=== PATIENT | male | born 1965 | race Caucasian/White ===

== ENCOUNTER → 2020-01-18 15:02 | Outpatient (CLI) | payer MEDICAID, SELFPAY ==
[2020-01-18 16:27] LABS: Coronavirus 19 IgG Antibody Negative (Negative); Coronavirus 19 IgM Antibody Negative (Negative)
== END ==
PROVIDERS: PCP Nurse Practitioner Family; Visit Provider Internal Medicine Gastroenterology
DX: Z03.818 Encounter for observation for suspected exposure to other biological agents ruled out (principal)
CPT/HCPCS: 36415; 86328

== ENCOUNTER 2020-01-20 11:27 | Day surgery (SDC) | payer MEDICAID, SELFPAY ==
[2020-01-20 12:00] VITALS: BP 188/90; PULSE 75; RESP 18; TEMP 36.8; O2SAT 98; BMI 26.0
[2020-01-20 12:11] LABS: POC Glucose,Bedside 202 (70-110)
[2020-01-20 12:52] VITALS: O2SAT 97
--- NOTE | 2020-01-20 12:59 | HMH.ANESCL ---
[facility] Anesthesia Checklist - Patient Identification Patient Identification: Arm Band, Verbal (Name & ) - Structural Data Admitted From: Home Planned Operative Procedure/s: Colonoscopy Consent for Planned Operative Procedure(s) Verified: Yes Verified Documents: Surgical Consent, History and Physical - NPO Status Verified Time NPO: 00:00 - Chart Verification Results Verified: None - Additional verifications Fingerstick Blood Glucose: 202 Anesthesia Reactions: No - Airway Assessment C-Spine Mobility Assessed: Yes TMJ Mobility Assessed: Yes Dentition: Edentulous - Neurological Assessment Level of Consciousness: Awake, Alert, Appropriate, Follows Commands Hx Seizures: No Numbness or tingling in extremities: No - Anesthesia Plan Anesthesia Risk discussed: Yes Anesthesia Plan: Verified ASA Class: III Anesthesia Type: MAC [facility] History I have reviewed the patient's past medical history: Yes Medical History: Reports:: Chronic Obstructive Pulmonary Disease (COPD), Diabetes Mellitus Type 2, Hyperlipidemia, Hypertension Denies:: Cancer, Diabetes Mellitus Type 1, Internal Pacemaker, MRSA, Seizures *Have you ever received a pneumonia vaccine?: No *Have you received a flu vaccine this season?: No Anesthesia experience/problems:: No prior complications Other Surgeries: Yes: Cholecystectomy. No: Pacemaker Amputation: No Fractures: Yes (Right tibia/fibula) - *Social History Last grade of school completed: High school graduate Smoking Status: Current every day smoker Tobacco Type: cigarettes # Packs/Day (cigarettes): 2 Alcohol Intake: never Substance Use Type: opiates *Occupational Status:: disabled Household Members: spouse *Travel in the last 8 weeks: None Family Hx:: Cancer, Diabetes, Hypertension
[2020-01-20 13:17] VITALS: BP 99/65; PULSE 68; RESP 12; TEMP 36.4; O2SAT 96
--- NOTE | 2020-01-20 13:19 | P.PCN_ITS ---
[facility] Procedure Note Procedure Note:: Colonoscopy Procedure Report: Colonoscopy with cold snare polypectomy Endoscopist: Braxton Bauer II, MD Referring physician: VITALIY Villagomez Date of Procedure: January 20, 2020 Equipment: Olympus 180 variable stiffness pediatric colonoscope Sedation: MAC sedation Indication: Mr. Espinoza is a 54-year-old gentleman who is here for diagnostic colonoscopy secondary to a positive FIT fecal Hemoccult. The patient's father had colon cancer in his 60s. The patient reports no rectal bleeding, hematoche dolores or melena. He reports no abdominal pain, weight loss or change in bowel habits. This is his first colonoscopy. Procedure: Prior to the procedure, a history and physical exam was performed, and patient's medications and allergies were reviewed. The risks, benefits and alternatives of the sedation and procedure were discussed with the patient. All questions were answered and informed consent was obtained. The patient was brought to the procedure room. Patient identification and proposed procedure were verified by the physician and the nurse. The patient was placed in a left lateral decubitus position and the scope was passed under direct vision. Throughout the procedure, the patient's blood pressure, pulse, and oxygen saturations were monitored continuously. The colonoscopy was accomplished without difficulty. The patient tolerated the procedure well. Findings: On digital rectal examination there was normal rectal tone. There were no external hemorrhoids. The prostate was 2+, smooth, soft, symmetric without nodules. The colonoscope was introduced through the anal canal to the rectum and advanced to the cecum. The ileocecal valve and appendiceal orifice were identified. The scope was advanced a short distance into the ileum which appeared grossly normal. The scope was then withdrawn into the colon. There were 6 colon polyps (cecum x1 (5 mm), descending x1 (6 mm) and rectal x4 (2 to 3 mm x 4)). All of these were removed via cold snare polypectomy there were scattered diverticuli throughout the descending and sigmoid colon (LEFT colon). The rectum itself was normal. Upon retroflexion within the rectum there were grade 1-2 internal hemorrhoids. The preparation was excellent throughout with [place] Preparation Score of 9. The cecal time was 12 minutes. Impression: 1. Colonic polyps x6 2. Left-sided diverticulosis 3. Grade 1-2 internal hemorrhoids Plan: I will follow up the polyp pathology and recommend repeat colonoscopy again in 5 years based upon the polyp histology and the patient's family history. I would encourage bulk fiber supplementation on a long-term daily maintenance basis.
[2020-01-20 13:27] VITALS: BP 111/61; PULSE 68; RESP 16; O2SAT 93
[2020-01-20 13:37] VITALS: BP 137/78; PULSE 75; RESP 16; O2SAT 96
[2020-01-20 13:47] VITALS: BP 126/79; PULSE 79; RESP 16; TEMP 36.4; O2SAT 96
== END 2020-01-20 14:02 | disposition home or self-care (01) ==
LOC: OUTP 11:29
PROVIDERS: PCP Nurse Practitioner Family; Visit Provider Internal Medicine Gastroenterology
PROC: 0DJD8ZZ Inspection of Lower Intestinal Tract, Via Natural or Artificial Opening Endoscopic (ICD-10-PCS; CPT 45378; principal; 2020-01-20 12:30)
DX: K63.5 Polyp of colon (principal); K57.30 Diverticulosis of large intestine without perforation or abscess without bleeding; K64.0 First degree hemorrhoids; E11.9 Type 2 diabetes mellitus without complications; J44.9 Chronic obstructive pulmonary disease, unspecified; I10 Essential (primary) hypertension; E78.5 Hyperlipidemia, unspecified; Z90.49 Acquired absence of other specified parts of digestive tract; Z72.0 Tobacco use; Z80.9 Family history of malignant neoplasm, unspecified; Z82.49 Family history of ischemic heart disease and other diseases of the circulatory system; Z83.3 Family history of diabetes mellitus
CPT/HCPCS: 45385; 82962

== ENCOUNTER → 2020-10-08 18:10 | Outpatient (CLI) | payer MEDICAID, SELFPAY ==
[2020-10-08 18:21] LABS: Basophils % 0.5 % (0.1-2.0); Eosinophils # 0.3 K/mm3 (0.0-0.4); Eosinophils % 3.8 % (0.1-12.0); Hematocrit 39.8 % (42.0-52.0); Hemoglobin 13.8 g/dL (14.1-18.0); Lymphocytes % 27.2 % (10-50); Mean Corpuscular HGB Conc 34.6 g/dL (31.8-35.4); Mean Corpuscular Hemoglobin 30.2 pg (27.0-31.2); Mean Corpuscular Volume 87.3 fl (80-94); Mean Platelet Volume 8.5 fl (7.4-10.4); Monocytes # 0.4 K/mm3 (0.1-1.0); Monocytes % 5.9 % (1.7-9.3); Neutrophils # 4.5 K/mm3 (1.8-7.8); Neutrophils % 62.5 % (37.0-80.0); Platelet Count 249 K/mm3 (142-424); Red Blood Count 4.56 M/mm3 (4.60-6.20); Red Cell Distribution Width 13.4 % (11.5-17.5); White Blood Count 7.3 K/mm3 (4.8-10.8)
[2020-10-08 18:29] LABS: Chloride 94 mmol/L (98-107); Potassium 4.2 mmoL/L (3.5-5.1); Sodium 134 mmol/L (136-145)
[2020-10-08 18:32] LABS: Alanine Aminotransferase 26 U/L (12-78); Albumin Level 4.5 g/dl (3.5-5.0); Albumin/Globulin Ratio 1.9 (1.1-1.8); Alkaline Phosphatase 96 U/L (38-126); Anion Gap 13.2 mEq/L (5-15); Aspartate Amino Transferase 29 U/L (17-59); Bilirubin,Total 0.5 mg/dl (0.2-1.3); Blood Urea Nitrogen 16 mg/dl (9-20); Carbon Dioxide 31 mmol/L (22.0-30.0); Cholesterol 99 mg/dl (140-200); Estimated Glomerular Filt Rate 117 ml/min (>60); GFR (African American) 142 ML/MIN (>60); Globulin 2.4 g/dL (1.3-3.2); Total Protein,Serum 6.9 g/dl (6.3-8.2); Triglycerides 84 mg/dl (30-150); VLDL Cholesterol 17 mg/dL (0-40)
[2020-10-08 18:33] LABS: Calcium 8.9 mg/dl (8.4-10.2); Chol/HDL Ratio 2.9 (1-3.5); Glucose 161 mg/dl (74-100); HDL Cholesterol 34 mg/dl (40-60)
[2020-10-08 19:03] LABS: Thyroid Stimulating Hormone 1.49 uIU/mL (0.465-4.68)
[2020-10-08 19:05] LABS: Hemoglobin A1C 6.9 % (4.0-6.0)
== END ==
PROVIDERS: Visit Provider Internal Medicine Adolescent Medicine
DX: E11.9 Type 2 diabetes mellitus without complications (principal); I10 Essential (primary) hypertension; E78.5 Hyperlipidemia, unspecified; Z79.84 Long term (current) use of oral hypoglycemic drugs
CPT/HCPCS: 80053; 80061; 83036; 84443; 85025

== ENCOUNTER → 2021-01-19 08:04 | Outpatient (CLI) | payer MEDICAID, SELFPAY ==
[2021-01-19 08:57] LABS: Chloride 100 mmol/L (98-107); Potassium 4.3 mmoL/L (3.5-5.1); Sodium 142 mmol/L (136-145)
[2021-01-19 09:00] LABS: Alanine Aminotransferase 21 U/L (12-78); Albumin Level 3.9 g/dl (3.5-5.0); Albumin/Globulin Ratio 1.5 (1.1-1.8); Alkaline Phosphatase 108 U/L (38-126); Anion Gap 14.3 mEq/L (5-15); Aspartate Amino Transferase 50 U/L (17-59); Bilirubin,Total 0.2 mg/dl (0.2-1.3); Blood Urea Nitrogen 20 mg/dl (9-20); Calcium 8.7 mg/dl (8.4-10.2); Carbon Dioxide 32 mmol/L (22.0-30.0); Estimated Glomerular Filt Rate 100 ml/min (>60); GFR (African American) 121 ML/MIN (>60); Globulin 2.6 g/dL (1.3-3.2); Glucose 182 mg/dl (74-100); Total Protein,Serum 6.5 g/dl (6.3-8.2)
[2021-01-19 10:04] LABS: Hemoglobin A1C 8.1 % (4.0-6.0)
== END ==
PROVIDERS: Visit Provider Internal Medicine Adolescent Medicine
DX: E11.9 Type 2 diabetes mellitus without complications (principal); Z79.84 Long term (current) use of oral hypoglycemic drugs
CPT/HCPCS: 80053; 83036

== ENCOUNTER → 2021-04-19 17:51 | Outpatient (CLI) | payer MEDICAID, SELFPAY ==
[2021-04-19 21:12] LABS: Hemoglobin A1C 7.7 % (4.0-6.0)
[2021-04-19 21:14] LABS: Alanine Aminotransferase 42 U/L (12-78); Albumin Level 4.1 g/dl (3.5-5.0); Albumin/Globulin Ratio 1.7 (1.1-1.8); Alkaline Phosphatase 107 U/L (38-126); Anion Gap 12.3 mEq/L (5-15); Aspartate Amino Transferase 38 U/L (17-59); Bilirubin,Total 0.5 mg/dl (0.2-1.3); Blood Urea Nitrogen 21 mg/dl (9-20); Calcium 8.9 mg/dl (8.4-10.2); Carbon Dioxide 33 mmol/L (22.0-30.0); Chloride 93 mmol/L (98-107); Estimated Glomerular Filt Rate 78 ml/min (>60); GFR (African American) 94 ML/MIN (>60); Globulin 2.4 g/dL (1.3-3.2); Glucose 144 mg/dl (74-100); Potassium 4.3 mmoL/L (3.5-5.1); Sodium 134 mmol/L (136-145); Total Protein,Serum 6.5 g/dl (6.3-8.2)
== END ==
PROVIDERS: Visit Provider Internal Medicine Adolescent Medicine
DX: E11.9 Type 2 diabetes mellitus without complications (principal); Z79.84 Long term (current) use of oral hypoglycemic drugs
CPT/HCPCS: 80053; 83036

== ENCOUNTER → 2022-05-09 06:35 | Outpatient (CLI) | payer MEDICAID, SELFPAY ==
[2022-05-09 18:26] LABS: Alanine Aminotransferase 28 U/L (12-78); Albumin Level 4.3 g/dl (3.5-5.0); Albumin/Globulin Ratio 1.7 (1.1-1.8); Alkaline Phosphatase 111 U/L (38-126); Anion Gap 12.9 mEq/L (5-15); Aspartate Amino Transferase 27 U/L (17-59); Bilirubin,Total 0.6 mg/dl (0.2-1.3); Blood Urea Nitrogen 12 mg/dl (9-20); Calcium 8.7 mg/dl (8.4-10.2); Carbon Dioxide 32 mmol/L (22.0-30.0); Chloride 97 mmol/L (98-107); Chol/HDL Ratio 2.7 (1-3.5); Cholesterol 122 mg/dl (140-200); Estimated Glomerular Filt Rate 100 ml/min (>60); GFR (African American) 121 ML/MIN (>60); Globulin 2.6 g/dL (1.3-3.2); Glucose 191 mg/dl (74-100); HDL Cholesterol 46 mg/dl (40-60); Potassium 3.9 mmoL/L (3.5-5.1); Sodium 138 mmol/L (136-145); Total Protein,Serum 6.9 g/dl (6.3-8.2); Triglycerides 95 mg/dl (30-150); VLDL Cholesterol 19 mg/dL (0-40)
[2022-05-09 18:27] LABS: Microalbumin/Creatinine Ratio 17.5
[2022-05-09 18:28] LABS: Basophils # 0.1 K/mm3 (0-0.2); Basophils % 0.9 % (0.1-2.0); Eosinophils # 0.3 K/mm3 (0.0-0.4); Eosinophils % 4.1 % (0.1-12.0); Hematocrit 42.2 % (42.0-52.0); Hemoglobin 13.4 g/dL (14.1-18.0); Lymphocytes # 2.1 K/mm3 (0.7-4.5); Lymphocytes % 28.1 % (10-50); Mean Corpuscular HGB Conc 31.8 g/dL (31.8-35.4); Mean Corpuscular Hemoglobin 29.5 pg (27.0-31.2); Mean Corpuscular Volume 92.6 fl (80-94); Mean Platelet Volume 8.7 fl (7.4-10.4); Monocytes # 0.4 K/mm3 (0.1-1.0); Monocytes % 5.6 % (1.7-9.3); Neutrophils # 4.5 K/mm3 (1.8-7.8); Neutrophils % 61.2 % (37.0-80.0); Platelet Count 329 K/mm3 (142-424); Red Blood Count 4.55 M/mm3 (4.60-6.20); Red Cell Distribution Width 14.7 % (11.5-17.5); White Blood Count 7.4 K/mm3 (4.8-10.8)
[2022-05-09 18:31] LABS: Creatinine,Urine Random 64 mg/dL (Not Estab.)
[2022-05-09 18:37] LABS: Direct LDL Cholesterol 58.23 mg/dL (100-129)
[2022-05-09 18:44] LABS: Hemoglobin A1C 8.8 % (4.0-6.0)
== END ==
PROVIDERS: PCP Family Medicine; Visit Provider Family Medicine
DX: E11.9 Type 2 diabetes mellitus without complications (principal); I10 Essential (primary) hypertension; Z79.84 Long term (current) use of oral hypoglycemic drugs; Z79.899 Other long term (current) drug therapy
CPT/HCPCS: 80053; 80061; 82043; 82570; 83036; 85025

== ENCOUNTER → 2023-04-10 23:37 | Outpatient (CLI) | payer MEDICAID, SELFPAY ==
[2023-04-10 17:23] LABS: Basophils % 0.6 % (0.1-2.0); Eosinophils # 0.3 K/mm3 (0.0-0.4); Eosinophils % 4.3 % (0.1-12.0); Hemoglobin 15.1 g/dL (14.1-18.0); Lymphocytes # 2.1 K/mm3 (0.7-4.5); Lymphocytes % 28.9 % (10-50); Mean Corpuscular HGB Conc 34.3 g/dL (31.8-35.4); Mean Corpuscular Hemoglobin 30.5 pg (27.0-31.2); Mean Corpuscular Volume 88.8 fl (80-94); Monocytes # 0.5 K/mm3 (0.1-1.0); Monocytes % 6.7 % (1.7-9.3); Neutrophils # 4.3 K/mm3 (1.8-7.8); Neutrophils % 59.5 % (37.0-80.0); Platelet Count 304 K/mm3 (142-424); Red Blood Count 4.96 M/mm3 (4.60-6.20); Red Cell Distribution Width 13.9 % (11.5-17.5); White Blood Count 7.2 K/mm3 (4.8-10.8)
[2023-04-10 18:17] LABS: Alanine Aminotransferase 42 U/L (12-78); Albumin Level 4.5 g/dl (3.5-5.0); Albumin/Globulin Ratio 1.5 (1.1-1.8); Alkaline Phosphatase 118 U/L (38-126); Anion Gap 12.4 mEq/L (5-15); Aspartate Amino Transferase 37 U/L (17-59); Bilirubin,Total 0.5 mg/dl (0.2-1.3); Blood Urea Nitrogen 26 mg/dl (9-20); Calcium 9.3 mg/dl (8.4-10.2); Carbon Dioxide 32 mmol/L (22.0-30.0); Chloride 94 mmol/L (98-107); Chol/HDL Ratio 3.2 (1-3.5); Cholesterol 127 mg/dl (140-200); Estimated Glomerular Filt Rate 100 ml/min (>60); GFR (African American) 121 ML/MIN (>60); Glucose 219 mg/dl (74-100); HDL Cholesterol 40 mg/dl (40-60); Potassium 4.4 mmoL/L (3.5-5.1); Sodium 134 mmol/L (136-145); Total Protein,Serum 7.5 g/dl (6.3-8.2); Triglycerides 104 mg/dl (30-150); VLDL Cholesterol 21 mg/dL (0-40)
[2023-04-10 18:28] LABS: Direct LDL Cholesterol 68.91 mg/dL (100-129)
[2023-04-10 18:48] LABS: Prostate Specific Ag Screen 0.3 ng/ml (0.0-4.0); Thyroid Stimulating Hormone 1.13 uIU/mL (0.465-4.68)
[2023-04-11 12:18] LABS: Creatinine,Urine Random 20 mg/dL (Not Estab.)
== END ==
PROVIDERS: PCP Nurse Practitioner Family; Visit Provider Nurse Practitioner Family
DX: Z00.00 Encounter for general adult medical examination without abnormal findings (principal); Z12.5 Encounter for screening for malignant neoplasm of prostate; E11.9 Type 2 diabetes mellitus without complications; I10 Essential (primary) hypertension; Z79.84 Long term (current) use of oral hypoglycemic drugs; Z72.0 Tobacco use
CPT/HCPCS: 80053; 80061; 82043; 82570; 83036; 84443; 85025; G0103

== ENCOUNTER 2023-10-20 16:37 | Outpatient (CLI) | payer MEDICAID, SELFPAY ==
[2023-10-20 16:33] LABS: Basophils # 0.1 K/mm3 (0-0.2); Basophils % 1.2 % (0.1-2.0); Eosinophils # 0.2 K/mm3 (0.0-0.4); Hemoglobin 13.6 g/dL (14.1-18.0); Lymphocytes # 1.8 K/mm3 (0.7-4.5); Lymphocytes % 33.1 % (10-50); Mean Corpuscular HGB Conc 32.4 g/dL (31.8-35.4); Mean Corpuscular Volume 92.5 fl (80-94); Mean Platelet Volume 9.2 fl (7.4-10.4); Monocytes # 0.4 K/mm3 (0.1-1.0); Monocytes % 7.9 % (1.7-9.3); Neutrophils % 54.9 % (37.0-80.0); Platelet Count 297 K/mm3 (142-424); Red Blood Count 4.54 M/mm3 (4.60-6.20); Red Cell Distribution Width 14.5 % (11.5-17.5); White Blood Count 5.5 K/mm3 (4.8-10.8)
[2023-10-20 17:02] LABS: Hemoglobin A1C 5.4 % (4.0-6.0)
[2023-10-20 17:26] LABS: Alanine Aminotransferase 24 U/L (12-78); Albumin Level 4.2 g/dl (3.5-5.0); Albumin/Globulin Ratio 1.5 (1.1-1.8); Alkaline Phosphatase 132 U/L (38-126); Anion Gap 14.7 mEq/L (5-15); Aspartate Amino Transferase 25 U/L (17-59); Bilirubin,Total 0.8 mg/dl (0.2-1.3); Blood Urea Nitrogen 19 mg/dl (9-20); Calcium 9.3 mg/dl (8.4-10.2); Carbon Dioxide 34 mmol/L (22.0-30.0); Chloride 93 mmol/L (98-107); Chol/HDL Ratio 3.1 (1-3.5); Cholesterol 151 mg/dl (140-200); Estimated Glomerular Filt Rate 87 ml/min (>60); GFR (African American) 105 ML/MIN (>60); Globulin 2.8 g/dL (1.3-3.2); Glucose 157 mg/dl (74-100); HDL Cholesterol 49 mg/dl (40-60); Potassium 3.7 mmoL/L (3.5-5.1); Sodium 138 mmol/L (136-145); Triglycerides 168 mg/dl (30-150); VLDL Cholesterol 34 mg/dL (0-40)
[2023-10-20 17:36] LABS: Direct LDL Cholesterol 65.48 mg/dL (100-129)
[2023-10-20 17:56] LABS: Thyroid Stimulating Hormone 2.91 uIU/mL (0.465-4.68)
== END 2023-10-20 23:59 | disposition home or self-care (01) ==
LOC: LAB.DROPOF 16:37
PROVIDERS: PCP Nurse Practitioner Family; Visit Provider Nurse Practitioner Family
DX: Z79.84 Long term (current) use of oral hypoglycemic drugs (principal); E11.9 Type 2 diabetes mellitus without complications; I10 Essential (primary) hypertension; F17.210 Nicotine dependence, cigarettes, uncomplicated
CPT/HCPCS: 80050; 80053; 80061; 83036; 84443; 85025

== ENCOUNTER 2024-10-22 09:30 | Outpatient (CLI) | payer MEDICAID, SELFPAY ==
[2024-10-22 16:52] LABS: Basophils % 0.5 % (0.1-2.0); Eosinophils # 0.1 Kmm3 (0.0-0.4); Eosinophils % 1.4 % (0.1-12.0); Hematocrit 36.6 % (42.0-52.0); Hemoglobin 11.8 g/dL (14.1-18.0); Immature Granulocytes # 0.02 10^3uL; Immature Granulocytes % 0.3 %; Lymphocytes # 0.9 K/mm3 (0.7-4.5); Lymphocytes % 15.8 % (10-50); Mean Corpuscular HGB Conc 32.2 g/dL (31.8-35.4); Mean Corpuscular Hemoglobin 28.4 pg (27.0-31.2); Mean Corpuscular Volume 88.2 fl (80-94); Mean Platelet Volume 10.5 fl (7.4-10.4); Monocytes # 0.6 K/mm3 (0.1-1.0); Monocytes % 10.8 % (1.7-9.3); Neutrophils # 4.1 K/mm3 (1.8-7.8); Neutrophils % 71.2 % (37.0-80.0); Nucleated Red Blood Cells # 0 10^3/uL; Nucleated Red Blood Cells % 0 %; Platelet Count 383 K/mm3 (142-424); Red Blood Count 4.15 M/mm3 (4.60-6.20); Red Cell Distribution Width 13.4 % (11.5-17.5); Red Cell Distribution Width-SD 43.3 fL; White Blood Count 5.8 K/mm3 (4.8-10.8)
[2024-10-22 17:22] LABS: Hemoglobin A1C 8.2 % (4.0-6.0)
[2024-10-22 17:53] LABS: Alanine Aminotransferase 24 U/L (12-78); Albumin Level 4.3 g/dl (3.5-5.0); Albumin/Globulin Ratio 1.3 (1.1-1.8); Alkaline Phosphatase 124 U/L (38-126); Anion Gap 13.3 mEq/L (5-15); Aspartate Amino Transferase 42 U/L (17-59); Bilirubin,Total 0.9 mg/dl (0.2-1.3); Blood Urea Nitrogen 23 mg/dl (9-20); Calcium 10.3 mg/dl (8.4-10.2); Carbon Dioxide 30 mmol/L (22.0-30.0); Chloride 94 mmol/L (98-107); Chol/HDL Ratio 4.2 (1-3.5); Cholesterol 163 mg/dl (140-200); Estimated Glomerular Filt Rate 86 ml/min (>60); GFR (African American) 105 ML/MIN (>60); Globulin 3.4 g/dL (1.3-3.2); Glucose 178 mg/dl (74-100); HDL Cholesterol 39 mg/dl (40-60); Potassium 4.3 mmoL/L (3.5-5.1); Sodium 133 mmol/L (136-145); Total Protein,Serum 7.7 g/dl (6.3-8.2); Triglycerides 159 mg/dl (30-150); VLDL Cholesterol 32 mg/dL (0-40)
[2024-10-22 18:04] LABS: Direct LDL Cholesterol 82.71 mg/dL (100-129)
[2024-10-22 18:24] LABS: Thyroid Stimulating Hormone 2.67 uIU/mL (0.465-4.68)
[2024-10-22 18:35] LABS: HIV Combo NEGATIVE (Negative)
[2024-10-22 18:40] LABS: Hepatitis C Ab Qual. W/ RFX NEGATIVE (Negative)
[2024-10-23 05:10] LABS: Hepatitis B Surface Antigen Negative (Negative)
== END 2024-10-22 23:59 | disposition home or self-care (01) ==
LOC: LAB.DROPOF 10-23 12:53
PROVIDERS: PCP Nurse Practitioner Family; Visit Provider Nurse Practitioner Family
DX: I10 Essential (primary) hypertension (principal); E11.9 Type 2 diabetes mellitus without complications; Z11.59 Encounter for screening for other viral diseases; Z11.4 Encounter for screening for human immunodeficiency virus [HIV]
CPT/HCPCS: 80053; 80061; 83036; 84443; 85025; 86803; 87340; 87389

== ENCOUNTER 2025-03-07 13:02 | Emergency (ER) | payer MEDICAID, SELFPAY ==
[2025-03-07] VITALS (11 sets, daily range): BP systolic 100–140; BP diastolic 51–114; PULSE 77–98; RESP 14–16; TEMP 37.1; O2SAT 91–98; BMI 19.5
--- NOTE | 2025-03-07 13:06 | ED_ITS ---
<Statement entered by Adolfo Fong MD - 03/08/25 10:12> I independently examined this pt. resting comfortably in NAD. No labored breathing. On RA. Ronchi bilaterally. Cachectic. Exhibiting B symptoms. Nothing focal on neuro exam. he is ambulatory here and states he can perform his ADLs at home. I interpreted the CT chest to demonstrate a necrotic mass in the GIOVANNA with postobstructive PNA. Shared decision making with pt and consultation with decorator lighting fixtures and oncologist. Pt will f/u outpt. Stable on discharge. I was consulted by the FELIX, and we discussed the complexity of problems being addressed. I approved the treatment and management plan for this patient's care in the emergency department, thus performing a substantial portion of the medical decision making. Adolfo Fong MD Discharge Plan Disposition Patient Disposition: Home, Self-Care Prescriptions Prescriptions: New amoxicillin-pot clavulanate 875-125 mg tablet 1 tab PO BID Qty: 20 0RF prednisone 20 mg tablet 20 mg PO BID 5 Days Qty: 10 0RF potassium chloride [K-Tab] 20 mEq tablet extended release 20 meq PO BID Qty: 20 0RF No Action buprenorphine-naloxone 8-2 mg tablet, sublingual sublingual DAILY Patient Comments: PLACE 1 AND 3/4 TABLETS UNDER THE TONGUE AND ALLOW TO DISSOLVE 1 TIME EACH DAY. (DME) OneTouch Ultra Test Strip See Rx Instructions .Route Qty: 100 5RF Rx Instructions: Check fsbs BID Prn Breztri Aerosphere 160-9-4.8 mcg/actuation HFA aerosol inhaler 2 inh inhalation BID Qty: 10.7 2RF atorvastatin 10 mg tablet See Rx Instructions .ROUTE .COMPLEX Qty: 30 2RF Dose Instruction: TAKE 1 TABLET 1 TIME EACH DAY AT BEDTIME FOR CHOLESTEROL Rx Instructions: TAKE 1 TABLET 1 TIME EACH DAY AT BEDTIME FOR CHOLESTEROL ipratropium-albuterol 0.5 mg-3 mg(2.5 mg base)/3 mL solution for nebulization 3 ml inhalation Q4-6H PRN (Reason: shortness of breath or wheezing) Qty: 180 0RF Jardiance 25 mg tablet 25 mg PO DAILY Qty: 90 1RF Januvia 100 mg tablet See Rx Instructions .ROUTE .COMPLEX Qty: 30 2RF Dose Instruction: TAKE 1 TABLET 1 TIME EACH DAY Rx Instructions: TAKE 1 TABLET 1 TIME EACH DAY ibuprofen 400 mg tablet See Rx Instructions .ROUTE .COMPLEX Qty: 90 2RF Dose Instruction: TAKE 1 TABLET EVERY 8 HOURS NEEDED FOR PAIN Rx Instructions: TAKE 1 TABLET EVERY 8 HOURS NEEDED FOR PAIN amlodipine 5 mg tablet See Rx Instructions .ROUTE .COMPLEX Qty: 30 2RF Dose Instruction: TAKE 1 TABLET 1 TIME EACH DAY Rx Instructions: TAKE 1 TABLET 1 TIME EACH DAY doxazosin 2 mg tablet See Rx Instructions .ROUTE .COMPLEX Qty: 30 2RF Dose Instruction: TAKE 1 TABLET 1 TIME EACH DAY Rx Instructions: TAKE 1 TABLET 1 TIME EACH DAY metformin 1,000 mg tablet See Rx Instructions .ROUTE .COMPLEX Qty: 60 2RF Dose Instruction: TAKE 1 TABLET 2 TIMES EACH DAY FOR DIABETES Rx Instructions: TAKE 1 TABLET 2 TIMES EACH DAY FOR DIABETES lisinopril-hydrochlorothiazide 20-25 mg tablet See Rx Instructions .ROUTE .COMPLEX Qty: 60 2RF Dose Instruction: TAKE 2 TABLETS 1 TIME EACH DAY FOR HIGH BLOOD PRESSURE Rx Instructions: TAKE 2 TABLETS 1 TIME EACH DAY FOR HIGH BLOOD PRESSURE carvedilol 25 mg tablet See Rx Instructions .ROUTE .COMPLEX Qty: 60 2RF Dose Instruction: TAKE 1 TABLET 2 TIMES EACH DAY WITH FOOD FOR HIGH BLOOD PRESSURE Rx Instructions: TAKE 1 TABLET 2 TIMES EACH DAY WITH FOOD FOR HIGH BLOOD PRESSURE albuterol sulfate [Ventolin HFA] 90 mcg/actuation HFA aerosol inhaler See Rx Instructions .ROUTE .COMPLEX Qty: 18 1RF Dose Instruction: INHALE 2 PUFFS EVERY 4 TO 6 HOURS NEEDED FOR COPD Rx Instructions: INHALE 2 PUFFS EVERY 4 TO 6 HOURS NEEDED FOR COPD (DME) Blood Glucose Test Strip See Rx Instructions .ROUTE .MEDSUPPLY Qty: 100 2RF Rx Instructions: As directed (DME) blood-glucose meter [Blood Glucose Monitoring] Kit See Rx Instructions .ROUTE .MEDSUPPLY Qty: 1 0RF Rx Instructions: As directed (DME) lancets 33 gauge misc See Rx Instructions .Route Qty: 100 2RF Rx Instructions: As directed Referrals Follow up/Referrals: Ana Barbour APRN [Primary Care Provider, Family Practice] - See instructions Lizandro Starr MD [Staff Physician, Oncology] - See instructions Referral Note: Please call and make appt with him for cancer work up Florinda Cowart MD [Physician, Pulmonology] - See instructions Referral Note: appt is 1:00 pm on 03/13/2025 at [facility] Clinical Impressions Clinical Impression: Cancer, Pneumonia, Lung cancer Instructions Patient Instructions: Atypical Pneumonia, DI for Lung Cancer Print Language Print Language: Citizen Of [place] Discharge ED Provider: Adolfo Fong General Adult HPI <Kathleen Jansen (ED), [employer] DIRECTOR - Last Filed: 03/07/25 17:12> General Chief complaint: Skin/Abscess/Foreign Body Stated complaint: dehydration, Low BP Time Seen by Provider: 03/07/25 13:06 History of Present Illness HPI narrative: 59-year-old male presents to the ED today for complaint of hypotension 72/50 at his doctor's office this morning. He also has bedsores on his right buttock. These have been open for 3 weeks. The areas have been red for over a year. Significant other says he sits a lot on the bed and watches TV. He has not been eating for 2 weeks. Significant other states that he has lost a about 20 pounds in 2 weeks. He complains of pain in his arms and legs. He binges alcohol 3 pints of vodka a day. He has had not had a drink since 3 to 4 days ago. This is per his significant other and him. Blood pressure and heart rate are normal here today. Related Data Home Medications ?Medication ?Instructions ?Recorded ?Confirmed buprenorphine 8 mg-naloxone 2 mg tab sublingual DAILY 04/10/23 03/07/25 sublingual tablet Previous Rx's ?Medication ?Instructions ?Recorded blood sugar diagnostic (STORYS.JPTouch #100 ea 10/20/23 Ultra Test strips) ipratropium 0.5 mg-albuterol 3 mg 3 ml inhalation Q4-6 H PRN 08/07/24 (2.5 mg base)/3 mL nebulization shortness of breath or wheezing soln #180 mL empagliflozin 25 mg tablet 25 mg PO DAILY #90 tabs (Jardiance) budesonide 160 mcg-glycopyr 9 2 inh inhalation BID #10 .7 grams 10/22/24 mcg-formot 4.8 mcg/actuation HFA inhaler (Breztri Aerosphere) amlodipine 5 mg tablet See Rx Instructions .Route 0 01/08/25 .COMPLEX #30 tabs carvedilol 25 mg tablet See Rx Instructions .Route 0 01/08/25 .COMPLEX #60 tabs doxazosin 2 mg tablet See Rx Instructions .Route 0 01/08/25 .COMPLEX #30 tabs ibuprofen 400 mg tablet See Rx Instructions .Route 0 01/08/25 .COMPLEX #90 tabs lisinopril 20 See Rx Instructions .Route 0 01/08/25 mg-hydrochlorothiazide 25 mg tablet .COMPLEX #60 tabs metformin 1,000 mg tablet See Rx Instructions .Route 0 01/08/25 .COMPLEX #60 tabs sitagliptin phosphate 100 mg See Rx Instructions .Rout e 01/08/25 tablet (Januvia) .COMPLEX #30 tabs albuterol sulfate 90 mcg/actuation See Rx Instructions .Route 02/18/25 aerosol inhaler (Ventolin HFA) .COMPLEX #18 grams blood sugar diagnostic (Blood #100 ea 02/18/25 Glucose Test strips) blood-glucose meter (Blood Glucose #1 ea 02/18/25 Monitoring kit) lancets 33 gauge #100 ea 02/19/25 amoxicillin 875 mg-potassium 1 tab PO BID #20 tabs 11/22 clavulanate 125 mg tablet atorvastatin 10 mg tablet See Rx Instructions .Route 1 05/07/24 .COMPLEX #30 tabs potassium chloride 20 mEq 20 meq PO BID #20 tabs 03/07 tablet,extended release (K-Tab) prednisone 20 mg tablet 20 mg PO BID 5 days #10 tabs 03/07/25 Allergies Allergy/AdvReac Type Severity Reaction Status Date / Time codeine (CODEINE) Allergy Unknown ITCHING Verified 03/07/25 10:43 [facility] <Kathleen Jansen (ED), [employer] DIRECTOR - Last Filed: 03/07/25 17:12> [facility] Medical History Anemia Hyperlipidemia Leg swelling Surgical History History of cholecystectomy History of surgery on lower extremity History of cholecystectomy Family History Father Cancer Diabetes Hypertension Sister Cancer Mother Diabetes Hypertension Other Coronary artery disease Social History Smoking Status: Current every day smoker tobacco type: cigarettes packs per day: 2 second hand exposure: No alcohol intake: current alcohol intake frequency: a few times a month substance use type: former substance user and opiates current occupational status: disabled Travel in the last 8 weeks?: None household members: spouse current occupational exposures/hazards: No caffeine: Yes Have you lived/traveled outside US in past 30 days?: No Contact w/someone who lives/traveled outside US past 30 days?: No Exposure to someone with infectious disease in past 14 days?: No Do you have a fever (greater than 100.4 F or 38 C)?: No Have you tested positive for COVID-19?: No Exposed to someone with COVID-19 in past 14 days?: No Do you have a sore throat?: No Do you have a cough?: No Do you have any weakness?: No Do you have any diarrhea?: No Are you experiencing any unusual bleeding?: No Do you have any muscle aches/pain?: No Do you have any abdominal pain?: No Are you experiencing loss of taste or smell?: No <Adolfo Fong MD - Last Filed: 03/07/25 13:44> [facility] Disclaimer: The information contained in this section may have been updated after the patient was seen, as this information can be updated by other users. Other Medical History Have you received the Flu Vaccine for this season: No Have you received the Pneumonia Vaccine: No <Kathleen Jansen (ED), [employer] DIRECTOR - Last Filed: 03/07/25 17:12> ROS Obtained: Yes Systems reviewed as appropriate & no additional complaints except as documented Constitutional Constitutional: Reports as per HPI Physical Exam <Kathleen Jansen (ED), [employer] DIRECTOR - Last Filed: 03/07/25 17:12> General General appearance: alert and in no apparent distress Head Head exam: normocephalic Eye Eye exam: Present PERRL and EOMI ENT ENT exam: Present normal oropharynx and mucous membranes moist Neck Neck exam: Present full ROM and trachea midline Respiratory Respiratory exam: Present normal lung sounds bilaterally Cardiovascular Cardiovascular exam: Present regular rate, normal rhythm, normal heart sounds, +S1 and +S2 Abdominal Exam Abdominal exam: Present soft and normal bowel sounds; Absent scar Extremities Exam Extremities exam: Present normal inspection, full ROM and normal capillary refill Neurological Exam Neurological exam: Present alert and oriented X3 Skin Skin exam: Present warm, dry and other (Open bedsores 3 on his right buttock) Medical Decision Making <Kathleen Jansen (ED), [employer] DIRECTOR - Last Filed: 03/07/25 17:12> Shen Inquiry Pt receiving controlled substance: No Shen was queried for this patient: No Vital Signs: 03/07/25 13:10 03/07/25 13:10 03/07/25 13:14 Temperature 98.8 F 98.8 F Temperature Source Oral Pulse Rate 95 H 95 H Pulse Rate [Right] 95 H Respiratory Rate 14 14 Blood Pressure 140/86 140/86 Blood Pressure [Right Arm] 140/86 Blood Pressure Mean [Right Arm] 104 02 Sat by Pulse Oximetry 98 98 97 Oxygen Delivery Method Room Air 03/07/25 13:30 03/07/25 13:46 03/07/25 14:10 Temperature Temperature Source Pulse Rate 87 87 86 Pulse Rate [Right] Respiratory Rate Blood Pressure 134/114 H 129/66 Blood Pressure [Right Arm] Blood Pressure Mean [Right Arm] 02 Sat by Pulse Oximetry 94 L 96 96 Oxygen Delivery Method Room Air Room Air 03/07/25 14:30 03/07/25 15:01 03/07/25 15:30 Temperature Temperature Source Pulse Rate 81 80 77 Pulse Rate [Right] Respiratory Rate Blood Pressure 135/72 100/51 L 112/61 Blood Pressure [Right Arm] Blood Pressure Mean [Right Arm] 02 Sat by Pulse Oximetry 94 L 91 L 93 L Oxygen Delivery Method Room Air Room Air 03/07/25 16:00 03/07/25 16:34 Temperature 98.8 F Temperature Source Pulse Rate 98 H 92 H Pulse Rate [Right] Respiratory Rate 16 Blood Pressure 119/85 136/73 Blood Pressure [Right Arm] Blood Pressure Mean [Right Arm] 02 Sat by Pulse Oximetry 97 Oxygen Delivery Method Lab Data Lab Results 03/07/25 13:11: WBC 6.5, RBC 4.91, Hgb 13.3 L, Hct 41.0 L, MCV 83.5, MCH 27.1, MCHC 32.4, RDW 13.1, Plt Count 394, MPV 9.7, Neut % (Auto) 73.4, Lymph % (Auto) 16.5, Emmons % (Auto) 7.8, Eos % (Auto) 1.1, Baso % (Auto) 0.9, Neut # (Auto) 4.8, Lymph # (Auto) 1.1, Emmons # (Auto) 0.5, Eos # (Auto) 0.1, Baso # (Auto) 0.1, ESR 1, PT 11.4, INR 1.03, APTT 24.7, Sodium 130 L, Potassium 2.9 L*, Chloride 82 L, Carbon Dioxide 38 H, Anion Gap 12.9, BUN 22 H, Creatinine 1.00, Estimated Creat Clear 73, Estimated GFR 76, Est GFR ( Amer) 93, Glucose 235 H, Lactate 1.7, Calcium 9.5, Magnesium 2.0, Total Bilirubin 1.2, AST 51, ALT 32, Alkaline Phosphatase 157 H, Total Creatine Kinase 52 L, C-Reactive Protein 94.9 H, N T-Pro-B Natriuret Pep 221 H, Total Protein 8.4 H, Albumin 4.0, Globulin 4.4 H, A lbumin/Globulin Ratio 0.9 L, Lipase 103, Plasma/Serum Alcohol < 10 03/07/25 13:29: Chlamy pneumoniae PCR Not detected, Adenovirus (PCR) Not detected, B. pertussis DNA (PCR) Not detected, Coronavirus OC43 (PCR) Not detected, Coronavirus HKU1 (PCR) Not detected, Coronavirus 229E (PCR) Not detected, SARS-CoV-2 (PCR) Not detected, Coronavirus NL63 (PCR) Not detected, Human Metapneumovir PCR Not detected, Influenza A (H1) PCR Not detected, Influ A (H1N1/09) PCR Not detected, Influenza A (H3) PCR Not detected, Influenza Type A (PCR) Not detected, Influenza Type B (PCR) Not detected, M. pneumoniae (PCR) Not detected, Parainfluenza 1 (PCR) Not detected, Parainfluenza 2 (PCR) Not detected, Parainfluenza 3 (PCR) Not detected, Parainfluenza 4 (PCR) Not detected, RSV (PCR) Not detected, Entero/Rhino (PCR) Not detected 03/07/25 13:11 03/07/25 13:11 Orders (Tests/Meds): ED MEDICATIONS Generic Name Dose Route Start Last Admin Trade Name Freq PRN Reason Stop Dose Admin Multivitamins 10 ml/ Thiamine 1,015 mls @ 250 mls/hr 03/07/25 13:19 03/07/25 16:45 HCl 100 mg/ Magnesium Sulfate IV 03/07/25 17:27 0 mls/hr 2 gm/ Lactated Ringer's .Q4H4M JIMMIE Infusion Discontinued Medications Generic Name Dose Route Start Last Admin Trade Name Freq PRN Reason Stop Dose Admin Iopamidol 75 ml 03/07/25 14:04 03/07/25 14:05 Iopamidol-370 (76%);100ml Bottle IV 03/07/25 14:05 75 ml ONCE ONE Administration Ondansetron HCl 4 mg 03/07/25 13:58 03/07/25 14:12 Ondansetron 4mg/2ml Vial IV 03/07/25 13:59 4 mg ONCE ONE Administration Potassium Chloride 60 meq 03/07/25 13:58 03/07/25 14:13 Potassium Chloride 20meq Tab PO 03/07/25 13:59 60 meq ONCE ONE Administration ORDERS Category Date Time Status CT abdomen pelvis w con Stat Cat Scan 03/07/25 13:[address] chest w con Stat Cat Scan 03/07/25 13:31 Completed Chest XR -- portable [XR chest portable] Stat Exams 03/07/25 13:18 Completed BNP [NT Pro Brain Natriuretic Pep.] Stat Lab 03/07/25 13:11 Completed C-Reactive Protein Stat Lab 03/07/25 13:11 Completed CBC [Complete Blood Count Auto Diff] Stat Lab 03/07/25 13:11 Completed Comprehensive Metabolic Panel Stat Lab 03/07/25 13:11 Completed Creatine Kinase Stat Lab 03/07/25 13:11 Completed Erythrocyte Sedimentation Rate Stat Lab 03/07/25 13:11 Completed Ethyl Alcohol Stat Lab 03/07/25 13:11 Completed Full Resp Panel w/COVID ([facility]) Routine Lab 03/07/25 13:29 Completed Lactic Acid Stat Lab 03/07/25 13:11 Completed Lipase Stat Lab 03/07/25 13:11 Completed Magnesium Stat Lab 03/07/25 13:11 Completed PT INR [Prothrombin Time INR] Stat Lab 03/07/25 13:11 Completed PTT [Activated Partial Thrombo Time] Stat Lab 03/07/25 13:11 Completed Urinalysis and Microscopic Stat Lab 03/07/25 13:17 Ordered Blood Culture Stat Micro 03/07/25 13:40 Received Urine Culture Stat Micro 03/07/25 13:19 Ordered Medical Decision Narrative: patient is a 59-year-old male presenting to the emergency department for evaluation of weight loss, reported hypotension from his primary care but blood pressure here initially was 140/86 initially, and bedsores.. Patient is hemodynamically stable and nontoxic-appearing upon arrival, afebrile. Differential diagnosis includes sepsis, pneumonia, hypotension, cancer, among others. Workup will be conducted with hematologic labs, specific imaging, provocative tests. Initial inventions include crystalloid bolus, analgesics, antibiotics, rally pack. Initial workup reviewed by me hematologic labs are remarkable for White count was normal at 6.5, H&H were 13.3 and 41, sodium was 130, potassium 2.9 which we replaced with p.o. potassium and will replace at home as well. BUN and creatinine were 22 and 1. Patient's liver function was normal. CRP and sed rate were elevated. Patient says respiratory panel was all negative. Patient did have a CT scan which showed large necrotic appearing mass in the left supra hilar region, most likely represents a postobstructive pneumonia. There were numerous left hilar, mediastinal and AP window nodes present, measuring up to 2.2 cm in size consistent with malignancy, primary or metastatic. I did discuss this with the patient. I also called Dr. Ramírez. I sent him the scan and he wants to see patient at 1:00 in clinic. He said he could go home on Augmentin. I discussed the importance of patient coming back for this appointment. I did offer patient a workup for metastatic cancer but patient did not want to go home. Which through shared decision making I believe is okay since patient is on room air and not requiring any oxygen. I did discuss this with Dr. Fong who also agreed with this plan. Patient is safe for discharge home as long as he has a follow-up with pulmonology. His appointment was made. He will follow-up with Dr. Starr for the lesion on his liver that we discussed as well as the lung nodule. I did talk to him about his CT scan of his abdomen that showed the liver lesion. Patient shows understanding and says he will follow-up with Dr. Long and Dr. Cowart <Adolfo Fong MD - Last Filed: 03/07/25 13:44> Medical Records Screening: Per USPSTF and CDC recommendations, given the prevalence of disease in our region, it is our hospital?s policy to screen for HIV and viral Hepatitis for all patients aged 18 and over and those with ongoing risk factors. Vital Signs: 03/07/25 13:10 03/07/25 13:10 03/07/25 13:14 Temperature 98.8 F 98.8 F Temperature Source Oral Pulse Rate 95 H 95 H Pulse Rate [Right] 95 H Respiratory Rate 14 14 Blood Pressure 140/86 140/86 Blood Pressure [Right Arm] 140/86 Blood Pressure Mean [Right Arm] 104 02 Sat by Pulse Oximetry 98 98 97 Oxygen Delivery Method Room Air 03/07/25 13:30 03/07/25 13:46 03/07/25 14:10 Temperature Temperature Source Pulse Rate 87 87 86 Pulse Rate [Right] Respiratory Rate Blood Pressure 134/114 H 129/66 Blood Pressure [Right Arm] Blood Pressure Mean [Right Arm] 02 Sat by Pulse Oximetry 94 L 96 96 Oxygen Delivery Method Room Air Room Air 03/07/25 14:30 03/07/25 15:01 03/07/25 15:30 Temperature Temperature Source Pulse Rate 81 80 77 Pulse Rate [Right] Respiratory Rate Blood Pressure 135/72 100/51 L 112/61 Blood Pressure [Right Arm] Blood Pressure Mean [Right Arm] 02 Sat by Pulse Oximetry 94 L 91 L 93 L Oxygen Delivery Method Room Air Room Air 03/07/25 16:00 03/07/25 16:34 Temperature 98.8 F Temperature Source Pulse Rate 98 H 92 H Pulse Rate [Right] Respiratory Rate 16 Blood Pressure 119/85 136/73 Blood Pressure [Right Arm] Blood Pressure Mean [Right Arm] 02 Sat by Pulse Oximetry 97 Oxygen Delivery Method Lab Data Lab Results 03/07/25 13:11: WBC 6.5, RBC 4.91, Hgb 13.3 L, Hct 41.0 L, MCV 83.5, MCH 27.1, MCHC 32.4, RDW 13.1, Plt Count 394, MPV 9.7, Neut % (Auto) 73.4, Lymph % (Auto) 16.5, Emmons % (Auto) 7.8, Eos % (Auto) 1.1, Baso % (Auto) 0.9, Neut # (Auto) 4.8, Lymph # (Auto) 1.1, Emmons # (Auto) 0.5, Eos # (Auto) 0.1, Baso # (Auto) 0.1, ESR 1, PT 11.4, INR 1.03, APTT 24.7, Sodium 130 L, Potassium 2.9 L*, Chloride 82 L, Carbon Dioxide 38 H, Anion Gap 12.9, BUN 22 H, Creatinine 1.00, Estimated Creat Clear 73, Estimated GFR 76, Est GFR ( Amer) 93, Glucose 235 H, Lactate 1.7, Calcium 9.5, Magnesium 2.0, Total Bilirubin 1.2, AST 51, ALT 32, Alkaline Phosphatase 157 H, Total Creatine Kinase 52 L, C-Reactive Protein 94.9 H, N T-Pro-B Natriuret Pep 221 H, Total Protein 8.4 H, Albumin 4.0, Globulin 4.4 H, A lbumin/Globulin Ratio 0.9 L, Lipase 103, Plasma/Serum Alcohol < 10 03/07/25 13:29: Chlamy pneumoniae PCR Not detected, Adenovirus (PCR) Not detected, B. pertussis DNA (PCR) Not detected, Coronavirus OC43 (PCR) Not detected, Coronavirus HKU1 (PCR) Not detected, Coronavirus 229E (PCR) Not detected, SARS-CoV-2 (PCR) Not detected, Coronavirus NL63 (PCR) Not detected, Human Metapneumovir PCR Not detected, Influenza A (H1) PCR Not detected, Influ A (H1N1/09) PCR Not detected, Influenza A (H3) PCR Not detected, Influenza Type A (PCR) Not detected, Influenza Type B (PCR) Not detected, M. pneumoniae (PCR) Not detected, Parainfluenza 1 (PCR) Not detected, Parainfluenza 2 (PCR) Not detected, Parainfluenza 3 (PCR) Not detected, Parainfluenza 4 (PCR) Not detected, RSV (PCR) Not detected, Entero/Rhino (PCR) Not detected Orders (Tests/Meds): ED MEDICATIONS Generic Name Dose Route Start Last Admin Trade Name Freq PRN Reason Stop Dose Admin Multivitamins 10 ml/ Thiamine 1,015 mls @ 250 mls/hr 03/07/25 13:19 03/07/25 16:45 HCl 100 mg/ Magnesium Sulfate IV 03/07/25 17:27 0 mls/hr 2 gm/ Lactated Ringer's .Q4H4M JIMMIE Infusion Discontinued Medications Generic Name Dose Route Start Last Admin Trade Name Jennifer PRN Reason Stop Dose Admin Iopamidol 75 ml 03/07/25 14:04 03/07/25 14:05 Iopamidol-370 (76%);100ml Bottle IV 03/07/25 14:05 75 ml ONCE ONE Administration Ondansetron HCl 4 mg 03/07/25 13:58 03/07/25 14:12 Ondansetron 4mg/2ml Vial IV 03/07/25 13:59 4 mg ONCE ONE Administration Potassium Chloride 60 meq 03/07/25 13:58 03/07/25 14:13 Potassium Chloride 20meq Tab PO 03/07/25 13:59 60 meq ONCE ONE Administration ORDERS Category Date Time Status CT abdomen pelvis w con Stat Cat Scan 03/07/25 13:[address] chest w con Stat Cat Scan 03/07/25 13:31 Completed Chest XR -- portable [XR chest portable] Stat Exams 03/07/25 13:18 Completed BNP [NT Pro Brain Natriuretic Pep.] Stat Lab 03/07/25 13:11 Completed C-Reactive Protein Stat Lab 03/07/25 13:11 Completed CBC [Complete Blood Count Auto Diff] Stat Lab 03/07/25 13:11 Completed Comprehensive Metabolic Panel Stat Lab 03/07/25 13:11 Completed Creatine Kinase Stat Lab 03/07/25 13:11 Completed Erythrocyte Sedimentation Rate Stat Lab 03/07/25 13:11 Completed Ethyl Alcohol Stat Lab 03/07/25 13:11 Completed Full Resp Panel w/COVID ([facility]) Routine Lab 03/07/25 13:29 Completed Lactic Acid Stat Lab 03/07/25 13:11 Completed Lipase Stat Lab 03/07/25 13:11 Completed Magnesium Stat Lab 03/07/25 13:11 Completed PT INR [Prothrombin Time INR] Stat Lab 03/07/25 13:11 Completed PTT [Activated Partial Thrombo Time] Stat Lab 03/07/25 13:11 Completed Urinalysis and Microscopic Stat Lab 03/07/25 13:17 Ordered Blood Culture Stat Micro 03/07/25 13:40 Received Urine Culture Stat Micro 03/07/25 13:19 Ordered ECG Data Tracing #1: Independently interpreted by me to demonstrate normal sinus rhythm with no obvious acute ischemic ST change, there is some borderline ST depression in the lateral precordial leads, but this is not acutely actionable with no obvious reciprocal changes. Patient not complaining of any chest pain or shortness of breath right now, low suspicion for ACS Critical Care <Kathleen Jansen (ED), [employer] DIRECTOR - Last Filed: 03/07/25 17:12> Critical Care Time Critical Care Time: No
--- NOTE | 2025-03-07 13:14 | ECG_ITS ---
APPROVED REPORT Exam: Resting ECG HR:83 bpm ECG Measurements Heart Rate 83 AXES NE 179 P 79 QRSd 110 QRS 45 QT 400 T 79 QTc 440 Conclusion SINUS RHYTHM INDETERMINATE AXIS NONSPECIFIC ST & T-WAVE ABNORMALITY BORDERLINE ECG UNCONFIRMED REPORT Electronically signed by : NIKITA SINGH, 03/09/2025 02:20:13
--- NOTE | 2025-03-07 13:18 | XR_ITS ---
FINAL REPORT CLINICAL HISTORY: short of breath COMPARISON: None FINDINGS: The heart size is normal. The mediastinum is normal. Localized dense opacity in the medial left upper lobe may be related to infiltrate. Air bronchograms are noted. The right lung is clear. There are no pleural effusions. There is no pneumothorax. There is no osseous abnormality. IMPRESSION: Dense opacity medial left upper lobe favor infiltrate. Cannot exclude underlying mass. Follow-up to ensure resolution. Reviewed, Interpreted and Dictated by David Loera MD Transcribed by Hanh Gillis Authenticated and [facility]
--- NOTE | 2025-03-07 13:30 | CT_ITS ---
FINAL REPORT TECHNIQUE: After the administration of oral and intravenous contrast, axial images were obtained through the abdomen and pelvis by computed tomography. The study was performed with techniques to keep radiation dose as low as reasonably achievable, (ALARA). Individual dose reduction techniques using automated exposure control or adjustment of mA and/or kV according to the patient's size were employed. CLINICAL HISTORY: abd pain, loss of appetite, PT PRESENTS TO ED FOR CONCERNS FOR HYPOTENSION AND BEDSORES ON SACRUM. PT REPORTS THESE SORES HAVE BEEN HERE FOR A WHILE BUT ARE GETTING WORSE. CAME FROM DR'S OFFICE AND STAFF REPORT PT'S BP WAS 70S/40S. PT ALSO REPORTS HAVING LOST 20 LBS IN THE LAST FEW MONTHS. COMPARISON: None FINDINGS: CT ABDOMEN AND PELVIS WITH CONTRAST: Abdomen: The gallbladder is absent. There is a 2.8 cm mass in the liver adjacent to the la hepatis, best seen on coronal images #29 through 31 of series 4. There is another small lesion in the medial right lobe, measuring 7 mm in size. The spleen and pancreas appear unremarkable. Mild adrenal hyperplasia is present. There is a benign appearing left renal cyst present measuring 1.5 cm in diameter. The aorta is normal in caliber. There is no free fluid or adenopathy. Pelvis: The appendix is normal in appearance. The urinary bladder is unremarkable. There is no free fluid or adenopathy. Dense calcifications are present in the aortoiliac vessels. IMPRESSION: 2.8 cm mass adjacent to the la hepatis as described above, with a smaller 7 mm lesion in the medial right lobe of the liver. These may represent metastases, and correlation with PET/CT is suggested. Reviewed, Interpreted and Dictated by David Loera MD Transcribed by Stefanie Acosta Authenticated and [facility]
[2025-03-07] MEDS: MVI, ADULT NO.1 WITH VIT K 10 ML, THIAMINE HCL 100 MG, MAGNESIUM SULFATE 2 GM in LACTAT... 150 ML IV (13:31)
--- NOTE | 2025-03-07 13:31 | CT_ITS ---
FINAL REPORT TECHNIQUE: Routine axial images were obtained from the lung apices to below the diaphragm following IV contrast administration. Individualized dose reduction techniques using automated exposure control or adjustment of the mA and/or kV according to the patient size were employed. CLINICAL HISTORY: abnormal chest xray today. COMPARISON: None FINDINGS: CT CHEST WITH CONTRAST: CT examination of the chest was performed with intravenous contrast. There are numerous left hilar, AP window and mediastinal lymph nodes present, measuring up to 2.2 cm in size. There is a large necrotic appearing mass in the left suprahilar region, that most likely represents a postobstructive pneumonia. The remainder of the lung bishop appear intact. There is no significant pleural or pericardial effusion present. IMPRESSION: Large necrotic appearing mass in the left suprahilar region, that most likely represents a postobstructive pneumonia. There are numerous left hilar, mediastinal and AP window nodes present, measuring up to 2.2 cm in size, consistent with malignancy, primary or metastatic. Recommend PET scan for further evaluation. Reviewed, Interpreted and Dictated by David Loera MD Transcribed by Stefanie Acosta Authenticated and [facility]
[2025-03-07 13:33] LABS: Hematocrit 41.0 % (42.0-52.0); Hemoglobin 13.3 g/dL (14.1-18.0); Immature Granulocytes % 0.3 %; Mean Corpuscular HGB Conc 32.4 g/dL (31.8-35.4); Mean Corpuscular Hemoglobin 27.1 pg (27.0-31.2); Mean Corpuscular Volume 83.5 fl (80-94); Nucleated Red Blood Cells % 0 %; Platelet Count 394 K/mm3 (142-424); Red Blood Count 4.91 M/mm3 (4.60-6.20); Red Cell Distribution Width-SD 39.6 fL; White Blood Count 6.5 K/mm3 (4.8-10.8)
[2025-03-07 13:36] LABS: Adenovirus,PCR Not Detected (NotDetected); Chlamydophila Pneumoniae, PCR Not Detected (NotDetected); Coronavirus 19, PCR Not Detected (NotDetected); Coronovirus HKU1,PCR Not Detected (NotDetected); Influenza A, PCR Not Detected (NotDetected); Influenza AH1, 2009 Not Detected (NotDetected); Influenza AH1, PCR Not Detected (NotDetected); Influenza AH3,PCR Not Detected (NotDetected); Influenza B, PCR Not Detected (NotDetected); Mycoplasma Pneumoniae, PCR Not Detected (NotDetected); Parainfluenza 1, PCR Not Detected (NotDetected); Parainfluenza 2, PCR Not Detected (NotDetected); Parainfluenza 3, PCR Not Detected (NotDetected); Parainfluenza 4, PCR Not Detected (NotDetected)
[2025-03-07 13:39] LABS: Activated Partial Thrombo Time 24.7 seconds (22.8-30.6); INR 1.03 (0.9-1.1); Prothrombin Time 11.4 seconds (10.1-12.5)
[2025-03-07 13:45] LABS: Alanine Aminotransferase 32 U/L (12-78); Albumin Level 4.0 g/dl (3.5-5.0); Albumin/Globulin Ratio 0.9 (1.1-1.8); Alkaline Phosphatase 157 U/L (38-126); Anion Gap 12.9 mEq/L (5-15); Aspartate Amino Transferase 51 U/L (17-59); Bilirubin,Total 1.2 mg/dl (0.2-1.3); Blood Urea Nitrogen 22 mg/dl (9-20); Calcium 9.5 mg/dl (8.4-10.2); Carbon Dioxide 38 mmol/L (22.0-30.0); Chloride 82 mmol/L (98-107); Creatine Kinase 52 U/L (55-170); Creatinine Clearance Estimated 73 mL/min (50-200); Creatinine,Serum 1.00 mg/dl (0.66-1.25); Estimated Glomerular Filt Rate 76 ml/min (>60); GFR (African American) 93 ML/MIN (>60); Globulin 4.4 g/dL (1.3-3.2); Glucose 235 mg/dl (74-100); Lipase 103 U/L (23-300); Magnesium 2.0 mg/dl (1.6-2.3); Sodium 130 mmol/L (136-145); Total Protein,Serum 8.4 g/dl (6.3-8.2)
[2025-03-07 13:48] LABS: Potassium 2.9 mmoL/L (3.5-5.1)
[2025-03-07 13:51] LABS: C-Reactive Protein 94.9 mg/L (0-4)
[2025-03-07] MEDS: IOPAMIDOL-370 (76%);100ML BOTTLE 75 ML IV (14:05)
[2025-03-07] MEDS: ONDANSETRON 4MG/2ML VIAL 4 MG IV (14:12)
[2025-03-07] MEDS: POTASSIUM CHLORIDE 20MEQ TAB 60 MEQ PO (14:13)
[2025-03-07 14:34] LABS: NT Pro Brain Natriuretic Pep. 221 pg/mL (0-125)
== END 2025-03-07 17:26 | disposition home or self-care (01) ==
PROVIDERS: Nurse Practitioner; Emergency Provider Emergency Medicine; PCP Nurse Practitioner Family
DX: J18.9 Pneumonia, unspecified organism (principal); C34.90 Malignant neoplasm of unspecified part of unspecified bronchus or lung; I95.9 Hypotension, unspecified; L89.319 Pressure ulcer of right buttock, unspecified stage; E87.6 Hypokalemia; E87.1 Hypo-osmolality and hyponatremia; F10.139 Alcohol abuse with withdrawal, unspecified; F17.210 Nicotine dependence, cigarettes, uncomplicated
CPT/HCPCS: 0223U; 71045; 71260; 74177; 80053; 80320; 82550; 83605; 83690; 83735; 83880; 85025; 85610; 85651; 85730; 86140; 87040; 93005; 96365; 96366; 96375; 99285; J2405; J3411; J3475; J7120; Q9967